=== PATIENT | female | born 1990 | race African-American/Black ===

== ENCOUNTER 2019-06-16 07:20 | Emergency (ER) | payer OTHER ==
[~2019-06-16] VITALS: Ht 167.6 cm; Wt 64.4 kg
[2019-06-16 07:26] VITALS: Ht 167.6 cm; Wt 64.4 kg
[2019-06-16 08:34] VITALS: BP 113/63
== END 2019-06-16 08:34 | disposition home or self-care (01) ==
LOC: ED 07:20
DX: J06.9 Acute upper respiratory infection, unspecified (principal)

== ENCOUNTER 2020-05-21 08:51 | Emergency (ER) | payer OTHER ==
[~2020-05-21] VITALS: Ht 167.6 cm; Wt 72.1 kg
[2020-05-21 08:57] VITALS: Ht 167.6 cm; Wt 72.1 kg
[2020-05-21 10:07] VITALS: BP 114/81
== END 2020-05-21 09:43 | disposition home or self-care (01) ==
LOC: ED 08:51
DX: S90.32XA Contusion of left foot, initial encounter (principal); W22.8XXA Striking against or struck by other objects, initial encounter; Y93.89 Activity, other specified; Y92.89 Other specified places as the place of occurrence of the external cause; Y99.8 Other external cause status
CPT/HCPCS: Q0092